=== PATIENT | female | born 1945 | race Caucasian/White ===

== ENCOUNTER → 2016-09-08 | Day surgery (SDC) | payer OTHER ==
[~2016-09-08] MED LIST: LIDOCAINE 1% 2 ML INJ ID PRN; LIDOCAINE 1% 2 ML INJ ONE; LR 1,000 ML IV SCH; MIDAZOLAM 2 MG/2 ML VIAL ONE; fentaNYL 100 MCG/2 ML INJ ONE
--- NOTE | 2016-09-08 17:45 | GPN ---
[f rep st] PROCEDURE NOTE DATE OF PROCEDURE: 09/08/2016 PROCEDURE: Colonoscopy with argon plasma coagulation. PREPROCEDURE DIAGNOSIS: Known right colon arteriovenous malformations, with some recent worsening anemia. POSTPROCEDURE DIAGNOSIS: Ablation of right colon arteriovenous malformations. PREMEDICATION: Benadryl 25 mg IV, fentanyl 150 mcg IV, Versed 7 mg IV. COMPLICATIONS: None. FINDINGS: After informed consent was obtained, the patient was placed in the left lateral decubitus position. Video pediatric colonoscope was placed in the rectum and advanced to the cecum, where the appendiceal orifice was seen. In the cecum, there were several small AVMs. In the ascending colon, there was approximately 10 small, friable AVMs. All the above AVMs were ablated, using argon plasma coagulation, at the settings for right colon. Upon slow withdrawal , mild left-sided diverticulosis was seen. IMPRESSION: Multiple arteriovenous malformations, as above. Ablated. Hopefully, this will help with her anemia, and decrease her iron requirements, etc. PLAN: She will follow up with her primary care physician and sld inclusion teacher as needed. Recommend periodic hematocrits, to make sure they remain stable. I would also recommend lifelong iron replacement therapy, as per my recent office note (dated August 07, 2016). Okay to use oral iron. Thank you, for allowing me to help in the care of this patient. Please let me know if we can be of further help in the future. Copy requested to: Barbi Castillo /[id number]/MODL [id number]
== END | disposition home or self-care (01) ==
LOC: FPAT 14:39 → FSGY 14:39
PROVIDERS: ATTEND Internal Medicine Gastroenterology
PROC: 0D5H8ZZ Destruction of Cecum, Via Natural or Artificial Opening Endoscopic (ICD-10-PCS; principal; 2016-09-08 16:00)
PROC: 0D5K8ZZ Destruction of Ascending Colon, Via Natural or Artificial Opening Endoscopic (ICD-10-PCS; principal; 2016-09-08 16:00)
DX: K55.20 Angiodysplasia of colon without hemorrhage (principal); D64.9 Anemia, unspecified
CPT/HCPCS: J1200; J2250; J3010